=== PATIENT | male | born 1975 | race Caucasian/White ===

== ENCOUNTER 2018-09-08 20:23 | Emergency (ER) | payer SELFPAY ==
[2018-09-08] MEDS ORDERED: Ketorolac 60 MG/2 ML SDV IM ONE (20:46)
--- NOTE | 2018-09-08 20:51 | EDM.PDOC ---
ED HPI GENERAL MEDICAL PROBLEM - General Chief Complaint: Upper Extremity Injury/Pain Stated Complaint: SWOLLEN HAND Time Seen by Provider: 09/08/18 20:46 Source of Information: Reports: Patient History Limitations: Reports: No Limitations - History of Present Illness INITIAL COMMENTS - FREE TEXT/NARRATIVE: HISTORY AND PHYSICAL: History of present illness: Patient is a 43-year-old male presents to the ED with complaint of right hand injury. He states he dropped a 140 lb tire on it last night. Has some tingling in to his fingers, denies proximal pain. Review of systems: As per history of present illness and below otherwise all systems reviewed and negative. Past medical history: As per history of present illness and as reviewed below otherwise noncontributory. Surgical history: As per history of present illness and as reviewed below otherwise noncontributory. Social history: No reported history of drug or alcohol abuse. Family history: As per history of present illness and as reviewed below otherwise noncontributory. Physical exam: General: Patient sitting comfortably in no acute distress and nontoxic appearing HEENT: Atraumatic, normocephalic, pupils reactive, negative for conjunctival pallor or scleral icterus, mucous membranes moist, throat clear, neck supple, nontender, trachea midline. No meningeal signs. Lungs: Clear to auscultation, breath sounds equal bilaterally, chest nontender. Heart: S1S2, regular, negative for clicks, rubs, or overt murmur. Abdomen: Soft, nondistended, nontender. Negative for masses or hepatosplenomegaly. Negative for costovertebral tenderness. No rigidity, rebound , guarding. Pelvis: Stable nontender. Genitourinary: Deferred. Rectal: Deferred. Extremities: right hand is swollen with bruising of the palm noted. Skin is intact. ROM of fingers and wrist limited due to swelling. No erythema or warmth. negative for cords or calf pain. Neurovascular unremarkable. Neuro: Awake, alert, oriented. Cranial nerves II through XII unremarkable. Cerebellum unremarkable. Motor and sensory unremarkable throughout. Exam nonfocal. Notes: Patient would not allow nursing staff to properly splint his hand. He understands that not properly immobilizing his hand may result in poor healing of the fracture as well as increase pain. Diagnostics: x-ray right hand Therapeutics: 60mg Toradol IM Thumb spica splint Prescriptions: Impression: 2nd metacarpal fracture Plan: Ice, elevate and motrin as instructed. May take norco as needed for sever pain, do not take while driving as it may make you drowsy Follow up with orthopedics, call the number provided to schedule an appointment Return to ED as needed as discussed Definitive disposition and diagnosis as appropriate pending reevaluation and review of above. Treatments CLINICAL REIMBURSEMENT SPECIALIST: Reports: NSAIDS R hand Pain Score (Numeric/FACES): 8 - Related Data Allergies Allergy/AdvReac Type Severity Reaction Status Date / Time No Known Allergies Allergy Verified 09/08/18 20:40 Home Meds: Home Meds . [No Known Home Meds] 09/08/18 [History] Past Medical History - Past Surgical History Musculoskeletal Surgical History: Reports: Other (See Below) Other Musculoskeletal Surgeries/Procedures:: jaw surgery, eye socket surgery, L leg surgery, tib/fib repair Social & Family History - Tobacco Use Smoking Status *Q: Current Every Day Smoker Years of Tobacco use: 15 Packs/Tins Daily: 0.5 - Caffeine Use Caffeine Use: Reports: Coffee - Recreational Drug Use Recreational Drug Use: No Review of Systems - Review of Systems Review Of Systems: ROS reveals no pertinent complaints other than HPI. ED EXAM, GENERAL - Physical Exam Exam: See Below (see dictation) Course - Vital Signs Last Recorded V/S: Last Vital Signs Temp 97.2 F 09/08/18 20:37 Pulse 85 09/08/18 20:37 Resp 16 09/08/18 20:37 BP 143/82 H 09/08/18 20:37 Pulse Ox 96 09/08/18 20:37 - Orders/Labs/Meds Meds: Medications Discontinued Medications Generic Name Dose Route Start Last Admin Trade Name Adam PRN Reason Stop Dose Admin Ketorolac Tromethamine 60 mg 09/08/18 20:46 09/08/18 20:51 Toradol IM 09/08/18 20:47 60 mg ONETIME ONE Administration Departure - Departure Time of Disposition: 22:16 Disposition: Home, Self-Care 01 Condition: Good Clinical Impression: Metacarpal bone fracture - Discharge Information Referrals: PCP,None [Primary Care Provider] - Forms: ED Department Discharge Additional Instructions: The following information is given to patients seen in the emergency department who are being discharged to home. This information is to outline your options for follow-up care. We provide all patients seen in our emergency department with a follow-up referral. The need for follow-up, as well as the timing and circumstances, are variable depending upon the specifics of your emergency department visit. If you don't have a primary care physician on staff, we will provide you with a referral. We always advise you to contact your personal physician following an emergency department visit to inform them of the circumstance of the visit and for follow-up with them and/or the need for any referrals to a consulting specialist. The emergency department will also refer you to a specialist when appropriate. This referral assures that you have the opportunity for follow-up care with a specialist. All of these measure are taken in an effort to provide you with optimal care, which includes your follow-up. Under all circumstances we always encourage you to contact your private physician who remains a resource for coordinating your care. When calling for follow-up care, please make the office aware that this follow-up is from your recent emergency room visit. If for any reason you are refused follow-up, please contact the [facility] at and asked to speak to the emergency department charge nurse. [facility] [address] [place], [place] [id number] [address] [address] [facility] [address] [place] [address], [address] [place] [address] Ice, elevate and motrin as instructed. May take norco as needed for sever pain, do not take while driving as it may make you drowsy Follow up with orthopedics, call the number provided to schedule an appointment Return to ED as needed as discussed
--- NOTE | 2018-09-08 21:53 | CR ---
INDICATION: Pain after a tire fell on the hand last night. COMPARISON: None available. TECHNIQUE: The right hand is examined with PA, lateral, and oblique views. FINDINGS: There is an acute, oblique, intra-articular, fracture of the radial aspect of the base of the 2nd metacarpal, best seen on the oblique view. There is approximately 10 percent radial displacement of the minor fracture fragment. There is no sign of additional fracture or dislocation. The soft tissues are normal in appearance without sign of radio-opaque foreign body. No significant degenerative disease is seen. IMPRESSION: Minimally distracted, acute, oblique, intra-articular, fracture of the radial aspect of the base of the 2nd metacarpal. Dictated by Devin Pollock MD @ Sep 08 2018 9:50PM Signed by Dr. Devin Pollock @ Sep 08 2018 9:52PM
== END 2018-09-08 22:23 | disposition home or self-care (01) ==
LOC: MW.ED 20:23
DX: S62.310A Displaced fracture of base of second metacarpal bone, right hand, initial encounter for closed fracture (principal); F17.210 Nicotine dependence, cigarettes, uncomplicated; W20.8XXA Other cause of strike by thrown, projected or falling object, initial encounter
CPT/HCPCS: 29125; 73130; 96372; 99283; J1885

== ENCOUNTER 2021-03-31 21:39 | Emergency (ER) | payer OTHER | END 2021-03-31 22:45 | disposition left against medical advice (07) | LOC: MW.ED 21:39 | DX: S01.01XA Laceration without foreign body of scalp, initial encounter (principal); V43.62XA Car passenger injured in collision with other type car in traffic accident, initial encounter; Y92.410 Unspecified street and highway as the place of occurrence of the external cause | CPT/HCPCS: 70450; 70450-26; 72125; 72125-26; 99284-25 ==

== ENCOUNTER 2021-04-02 13:27 | Emergency (ER) | payer OTHER ==
[2021-04-02] MEDS ORDERED: Acetaminophen/oxyCODONE 325-5 MG Tab PO ONE (14:01)
== END 2021-04-02 16:26 | disposition home or self-care (01) ==
LOC: MW.ED 13:27
DX: S01.01XA Laceration without foreign body of scalp, initial encounter (principal); W25.XXXA Contact with sharp glass, initial encounter; V49.10XA Passenger injured in collision with unspecified motor vehicles in nontraffic accident, initial encounter; Y92.410 Unspecified street and highway as the place of occurrence of the external cause
CPT/HCPCS: 99283; A9270

== ENCOUNTER 2023-06-19 00:04 | Emergency (ER) | payer SELFPAY ==
[2023-06-19] MEDS: Amoxicillin/Clavulanate K 875-125 MG Tab PO ONE (00:30)
[2023-06-19] MEDS: oxyCODONE 5 MG Tab PO ONE (00:30)
[2023-06-19] MEDS: Ibuprofen 600 MG Tab PO ONE (00:30)
[2023-06-19] MEDS: Acetaminophen/oxyCODONE 325-5 MG Tab PO ONE (00:31)
== END 2023-06-19 00:35 | disposition home or self-care (01) ==
LOC: MW.ED 00:04
DX: K04.7 Periapical abscess without sinus (principal); Z79.899 Other long term (current) drug therapy; Z75.8 Other problems related to medical facilities and other health care
CPT/HCPCS: 99282; A9270; 99283

== ENCOUNTER 2024-04-03 19:20 | Emergency (ER) | payer SELFPAY ==
[2024-04-03] MEDS: Diphtheria,Pertussis(Acell),Tetanus Vaccine 0.5 ML Syringe IM ONE (20:34)
[2024-04-03] MEDS: Morphine 2 MG/ML SYRINGE IVPUSH ONE (20:35)
[2024-04-03] MEDS: Iopamidol 755 MG/ML 500 ML Multipack Bottle IVPUSH ONE (21:07)
[2024-04-03] MEDS: Morphine 4 MG/ML Syringe IVPUSH ONE ×2 (21:40→22:29)
[2024-04-03 23:17] LABS: BASOPHILS ABSOLUTE AUTO 0.11 K/uL (0.00-0.20); BASOPHILS PERCENT AUTO 0.7 % (0.0-1.0); EOSINOPHILS ABSOLUTE AUTO 0.15 K/uL (0.00-0.45); HEMATOCRIT 41.2 % (42.0-52.0); HEMOGLOBIN 14.7 g/dL (14.0-18.0); IMMATURE GRAN ABSOLUTE AUTO 0.05 K/uL (0.00-0.05); IMMATURE GRAN PERCENT AUTO 0.3 % (0.0-0.4); LYMPHOCYTES ABSOLUTE AUTO 3.77 K/uL (1.00-4.80); LYMPHOCYTES PERCENT AUTO 24.1 % (24.0-44.0); MEAN CORPUSCULAR HEMOGLOBIN 29.3 pg (28.0-32.0); MEAN CORPUSCULAR HGB CONC 35.7 g/dL (32.0-36.0); MEAN CORPUSCULAR VOLUME 82.1 fL (83.0-99.0); MEAN PLATELET VOLUME 8.5 fL (9.4-12.4); MONOCYTES ABSOLUTE AUTO 1.39 K/uL (0.00-0.80); MONOCYTES PERCENT AUTO 8.9 % (0.0-8.0); PLATELET COUNT,PLT 297 K/uL (150-400); RED BLOOD CELL COUNT 5.02 M/uL (4.52-5.90); WHITE BLOOD CELL COUNT,WBC 15.67 K/uL (3.9-11.3)
[2024-04-03 23:31] LABS: INR 1.1 (0.86-1.11); PTT,PARTIAL THROMBOPLSTIN TIME 27.9 SEC (23.9-30.7)
[2024-04-03 23:48] LABS: CARBON DIOXIDE,CO2 26.5 mmol/L (21.0-32.0); CREATININE 0.8 mg/dL (0.8-1.3); EST CRCL DRUG DOSING (CG) 125.29 mL/min; POTASSIUM,K 3.7 mmol/L (3.5-5.1)
[2024-04-04] MEDS: fentaNYL 50 MCG/ML SDV IVPUSH ONE (00:50)
== END 2024-04-04 00:47 ==
LOC: MW.ED 19:20
DX: S71.132A Puncture wound without foreign body, left thigh, initial encounter (principal); S70.12XA Contusion of left thigh, initial encounter; I70.229 Atherosclerosis of native arteries of extremities with rest pain, unspecified extremity; Y04.0XXA Assault by unarmed brawl or fight, initial encounter; Z79.899 Other long term (current) drug therapy; Z23 Encounter for immunization
CPT/HCPCS: 36415; 36430; 73706; 80048; 85025; 85610; 85730; 86850; 86900; 86901; 86920; 90471; 90715; 96374; 96375; 96376; 99285; J2270; J3010; P9016; Q9967; 99284